=== PATIENT | female | born 1955 | race Two or more races ===

== ENCOUNTER → 2024-07-12 | Outpatient (CLI) | payer MEDICAID, SELFPAY ==
--- NOTE | 2024-07-12 13:18 | XR_ITS ---
Examination: PA lateral chest 2 views TECHNIQUE: Upright PA lateral chest 2 views Exam date and time: 08/08/2024 1334 hours INDICATIONS: Positive PPD. FINDINGS: Moderate hyperexpansion Mild prominence left ventricle Atelectasis in the lower lung zones. No lobar pneumonia IMPRESSION: COPD No radiographic findings of tuberculosis
== END | disposition home or self-care (01) ==
PROVIDERS: PCP Internal Medicine; Referring Provider Internal Medicine; Visit Provider Internal Medicine
DX: Z11.1 Encounter for screening for respiratory tuberculosis (principal); J44.9 Chronic obstructive pulmonary disease, unspecified
CPT/HCPCS: 71046